=== PATIENT | male | born 1950 | race Caucasian/White ===

== ENCOUNTER 2021-07-16 11:52 | Emergency (ER) | payer BC ==
[~2021-07-16] VITALS: Ht 188 cm; Wt 95.9 kg
[2021-07-16] MEDS ORDERED: IV NORMAL SALINE 1,000ML 1,000 ML IV ONE (12:15)
--- NOTE | 2021-07-16 12:16 | PHYS DOC ---
Past History Past Surgical History: Other Additional Past Surgical Histo: vasectomy (INGA WOOD APRN) General Adult EDM: Chief Complaint: LACERATION/AVULSION HPI: HPI: Patient is a 71-year-old male who presents to the emergency department via EMS following a fall. Patient reports that he was sitting down when his perceptions knocked on his door and he stood up to answer the door and felt lightheaded and hot and passed out. Patient reports hitting the back of his head on his floor. He does have hematoma and abrasion to the back of his scalp. Patient states that he is currently "being worked up for liver problems" by his primary care provider. Patient is reporting left-sided paraspinal neck pain. He denies back pain, blood thinner use, nausea, vomiting, chest pain, shortness of breath. (INGA WOOD APRN) Review of Systems: Review of Systems: HENT: See HPI Respiratory: See HPI Cardiovascular: See HPI GI: See HPI Musculoskeletal: See HPI Integument: See HPI Neurologic: See HPI (INGA WOOD APRN) Current Medications: Current Meds: Current Medications Medications (Trade) Dose Ordered Sig/Ton Start Time Stop Time Status Last Admin Dose Admin Sodium Chloride 1,000 ml @ 1,000 mls/hr 1X ONCE 07/16/21 12:15 07/16/21 13:14 UNV (INGA WOOD APRN) Allergies: Allergies: Allergies Coded Allergies Type Severity Reaction Last Updated Verified No Known Drug Allergies 07/16/21 No (INGA WOOD APRN) Physical Exam: PE: Constitutional: Well developed, well nourished, no acute distress, non-toxic appearance. [] HENT: Normocephalic, no abernathy sign or raccoon sign, no palpable skull fracture, golf ball sized hematoma noted to the left posterior scalp, abrasion noted to this area,, bilateral external ears normal, oropharynx moist, no oral exudates, nose normal. [] Eyes: PERRL, 4 mm bilaterally, EOMI, conjunctiva normal, no discharge. [] Neck: Normal range of motion, no bony spinal tenderness, no step-offs or deformities, left-sided paraspinal cervical tenderness at the base of the skull with palpation, supple, no stridor. [] Cardiovascular:Heart rate r bradycardic rhythm, no murmur [] Lungs & Thorax: Bilateral breath sounds clear to auscultation [] Abdomen: Bowel sounds normal, soft, no tenderness, no masses, no pulsatile masses. [] Skin: Warm, dry, no erythema, no rash. [] Back: No spinal tenderness, no deformities, normal range of motion Extremities: No tenderness, no cyanosis, no clubbing, ROM intact, no edema. [] Neurologic: Alert and oriented X 3, normal motor function, normal sensory function, no focal deficits noted. [] Psychologic: Affect normal, judgement normal, mood normal. [] (INGA WOOD APRN) Current Patient Data: Labs: Laboratory Tests Test 07/16/21 12:11 White Blood Count 8.4 x10^3/uL Red Blood Count 4.89 x10^6/uL Hemoglobin 15.6 g/dL Hematocrit 46.2 % Mean Corpuscular Volume 95 fL Mean Corpuscular Hemoglobin 32 pg Mean Corpuscular Hemoglobin Concent 34 g/dL Red Cell Distribution Width 15.3 % Platelet Count 245 x10^3/uL Neutrophils (%) (Auto) 77 % Lymphocytes (%) (Auto) 8 % Monocytes (%) (Auto) 12 % Eosinophils (%) (Auto) 1 % Basophils (%) (Auto) 2 % Neutrophils # (Auto) 6.5 x10^3uL Lymphocytes # (Auto) 0.7 x10^3/uL Monocytes # (Auto) 1.0 x10^3/uL Eosinophils # (Auto) 0.1 x10^3/uL Basophils # (Auto) 0.2 x10^3/uL Sodium Level 131 mmol/L Potassium Level 4.7 mmol/L Chloride Level 95 mmol/L Carbon Dioxide Level 29 mmol/L Anion Gap 7 Blood Urea Nitrogen 33 mg/dL Creatinine 1.8 mg/dL Estimated GFR (Cockcroft-Gault) 37.6 BUN/Creatinine Ratio 18 Glucose Level 78 mg/dL Calcium Level 9.2 mg/dL Total Bilirubin 1.2 mg/dL Aspartate Amino Transf (AST/SGOT) 52 U/L Alanine Aminotransferase (ALT/SGPT) 44 U/L Alkaline Phosphatase 86 U/L Troponin I High Sensitivity 11 ng/L Total Protein 6.4 g/dL Albumin 3.2 g/dL Albumin/Globulin Ratio 1.0 Current Medications Medications (Trade) Dose Ordered Sig/Ton Route PRN Reason Start Time Stop Time Status Last Admin Dose Admin Sodium Chloride 1,000 ml @ 1,000 mls/hr 1X ONCE IV 07/16/21 12:15 07/16/21 13:14 07/16/21 12:22 Vital Signs: Vital Signs Date Time Temp Pulse Resp B/P (MAP) Pulse Ox O2 Delivery O2 Flow Rate FiO2 07/16/21 12:00 97.9 56 20 91/58 (69) 97 Room Air (INGA WOOD APRN) EKG: EKG: EKG performed by ER staff at 1206 shows sinus rhythm with a rate of 53, QTC is 451, no STEMI read by Dr. Walker at 1211 [] (INGA WOOD APRN) Radiology/Procedures: Radiology/Procedures: []PROCEDURE: PORTABLE CHEST 1V XR CHEST 1V History: Reason: sycnope / Spl. Instructions: / History: Comparison: None. Findings: No consolidation or pleural effusion. Normal heart size. No pneumothorax. Impression: 1. No acute cardiopulmonary process. Electronically signed by: Marcus Bello DO (07/16/2021 12:55 PM) [id number] DICTATED AND SIGNED BY: MARCUS BELLO DO DATE: 07/16/21 1254 CC: INGA WOOD APRN; NON,STAFF ~MTH0 0 PROCEDURE: CT HEAD AND CERVICAL SPINE WO CT scan of the head without contrast 07/16/2021 Clinical History: Head injury. Technique: Unenhanced, contiguous, 5 mm axial sections were obtained through the head. One or more of the following individualized dose reduction techniques were utilized for this study: 1. Automated exposure control. 2. Adjustment of the mA and/or kV according to patient size. 3. Use of iterative reconstruction technique. Findings: There is generalized parenchymal atrophy. Areas of decreased attenuation are seen within the periventricular and subcortical white matter of both cerebral hemispheres consistent with areas of small vessel ischemic disease. No acute parenchymal abnormality is seen. No extra-axial fluid collection is noted. No skull fracture is seen. Impression: No acute intracranial abnormality is seen. CT scan of the cervical spine without contrast 07/16/2021 Clinical history: Fall. Neck injury. Technique: Unenhanced, contiguous, 0.625 mm axial sections were obtained through the cervical spine. 2.5 mm reconstructed axial and 2 mm coronal and sagittal reconstructed images were obtained. One or more of the following individualized dose reduction techniques were utilized for this study: 1. Automated exposure control. 2. Adjustment of the mA and/or kV according to patient size. 3. Use of iterative reconstruction technique. Findings: Sagittal and coronal reconstructed images demonstrate straightening of the normal cervical lordosis. Degenerative changes consisting of varying degrees of disc space narrowing, vertebral endplate sclerosis and mild to moderate anterior vertebral body osteophyte formation are seen involving the mid and lower cervical disc spaces. No fracture or subluxation of the cervical vertebrae is seen. Degenerative changes are seen involving the uncovertebral and facet joints throughout the cervical disc spaces. Impression: No fracture or subluxation of the cervical vertebra is identified. Electronically signed by: Naeem Lawson MD (07/16/2021 12:56 PM) [id number] DICTATED AND SIGNED BY: NAEEM LAWSON MD DATE: 07/16/21 1250 CC: INGA WOOD APRN; NON,STAFF ~MTH0 0 (INGA WOOD APRN) Heart Score: C/O Chest Pain: No Risk Factors: Risk Factors: DM, Current or recent (<one month) smoker, HTN, HLP, family history of CAD, obesity. Risk Scores: Score 0 - 3: 2.5% MACE over next 6 weeks - Discharge Home Score 4 - 6: 20.3% MACE over next 6 weeks - Admit for Clinical Observation Score 7 - 10: 72.7% MACE over next 6 weeks - Early Invasive Strategies (INGA WOOD APRN) Course & Med Decision Making: Course & Med Decision Making Pertinent Labs and Imaging studies reviewed. (See chart for details) [] Patient presents to the emergency department for a syncopal episode and fall. Work-up in the emergency department consisted of blood work including troponin, urinalysis, EKG, chest x-ray. CT imaging of head and neck performed due to trauma.C-collar placed. Patient is likely experiencing orthostatic hypotension as he reports that he stood up felt dizzy and hot and passed out. Patient will be treated with IV fluids as he is mildly hypotensive. CBC unremarkable. Patient's sodium was 131 chloride was 95. BUN 33, creatinine 1.8. Patient reports that he has a history of elevated creatinine. Patient's troponin was 11. Chest x-ray showed no acute findings. Negative CT scan of head and neck. C-collar cleared. Patient's heart rate is bradycardic he states that he takes propanolol and has a history of bradycardia. Following treatment with IV fluids, patient's blood pressure has improved. Patient will be road tested to determine if he is able to ambulate without severe dizziness or syncope. Patient was noted to have a decrease in his blood pressure when he stood up but he did not have any syncope, dizziness, tachycardia, hypoxia. When he ambulated was with a steady gait. Blood pressure return to normal ranges when he sat down. Patient still has about 800 cc of his IV fluids left. He will receive the remainder of his IV fluids and he is advised to follow-up with his primary care provider. She continues to be asymptomatic. He denies any dizziness. I discussed with patient slowly changing positions, increasing fluids and following up with his doctor regarding medical management. He may need his blood pressure medication decreased. He reported that his is contacted his primary care provider and they have removed enalapril from his medication today. Patient is agreeable to discharge. I discussed with patient all findings and diagnostic testing as well as the need to follow-up with PCP for further evaluation and treatment or return to the ER if any new or worsening symptoms. Strict return precautions were also discussed at length. Patient voiced understanding and agreement with the plan. Patient is hemodynamically stable at the time of disposition. (INGA WOOD APRN) Dragon Disclaimer: Dragon Disclaimer: This electronic medical record was generated, in whole or in part, using a voice recognition dictation system. (INGA WOOD APRN) Laceration Repair Lac Repair Time: 1230 Confirmed: Patient, procedure, site, and site correct Consent: Patient has given verbal consent Laceration location: Left posterior scalp Shape: Puncture/wound Details: Clean with no foreign material Neurovascular, tendon exam: Intact Irrigation: Wound irrigated with sterile saline Skin closure: Staple Number of sutures:1 Post procedure exam: Circulation, motor, sensory exam intact, bleeding controlled. Complications: None Patient tolerated: Well Performed by: self Total time: 5 minutes (INGA WOOD APRN) Attending Co-Sign The patient was seen and interviewed as well as examined at the bedside. The chart was reviewed. The case was discussed. Agree with the plan of care. (WALKER,CONCEPCION DO) Departure Departure: Impression: Primary Impression: Syncope Qualified Codes: R55 - Syncope and collapse Disposition: HOME / SELF CARE / HOMELESS Condition: GOOD Referrals: PCPDAMON (PCP) Patient Instructions: Syncope Additional Instructions: You were seen in the emergency department today for a syncopal episode. As we discussed, you had mild elevation in your creatinine which you need to follow-up with your primary care provider regarding. As we discussed, I suspect that you are experiencing orthostatic hypotension. Make sure at home you are slowly changing positions so that your blood pressure does not drop too quickly. Please increase your fluid intake. You stated that your primary care provider has adjusted your hypertension medications. Apply ice to your scalp to help with swelling and pain. Please keep your laceration clean and dry. You can wash it with mild soap and warm water. Please do not scrub your head too vigorously as do not want to disrupt this staple in place. Monitor for any signs of infection at your wound site which would include redness, warmth, swelling or drainage. You will need to have your staple removed in 7 to 10 days. You can follow-up with your primary care provider to have the staple removed or return to the emergency department. Please contact your primary care provider to follow-up regarding your ER visit tomorrow. Return to the emergency department if you develop dizziness, syncope, chest pain, shortness of breath, high fevers refractory to treatment, signs of skin infection as stated above, intractable nausea or vomiting, confusion, poor coordination, speech changes, inability to walk, vision changes. INGA WOOD APRN Jul 16, 2021 12:16 CONCEPCION WALKER DO Jul 18, 2021 09:09
[2021-07-16 12:28] LABS: BASO # 0.2 x10^3/uL (0.0-0.2); BASO % 2 % (0-3); EOS # 0.1 x10^3/uL (0.0-0.7); EOS % 1 % (0-3); HEMATOCRIT 46.2 % (39.0-53.0); HEMOGLOBIN 15.6 g/dL (13.0-17.5); LYMPH # 0.7 x10^3/uL (1.0-4.8); LYMPH % 8 % (24-48); MEAN CORPUSCULAR HEMOGLOBIN 32 pg (25-35); MEAN CORPUSCULAR HGB CONC 34 g/dL (31-37); MEAN CORPUSCULAR VOLUME 95 fL (79-100); MONO % 12 % (0-9); NEUT # 6.5 x10^3uL (1.8-7.7); NEUT % 77 % (31-73); PLATELET COUNT 245 x10^3/uL (140-400); RED BLOOD COUNT 4.89 x10^6/uL (4.30-5.70); RED CELL DISTRIBUTION WIDTH 15.3 % (11.5-14.5); WHITE BLOOD COUNT 8.4 x10^3/uL (4.0-11.0)
[2021-07-16 12:38] LABS: CALCIUM 9.2 mg/dL (8.5-10.1); CREATININE 1.8 mg/dL (0.7-1.3); GFR 37.6; POTASSIUM 4.7 mmol/L (3.5-5.1)
[2021-07-16 12:44] LABS: ALBUMIN 3.2 g/dL (3.4-5.0); TOTAL BILIRUBIN 1.2 mg/dL (0.2-1.0); TOTAL PROTEIN 6.4 g/dL (6.4-8.2)
--- NOTE | 2021-07-16 12:57 | RAD ---
XR CHEST 1V History: Reason: sycnope / Spl. Instructions: / History: Comparison: None. Findings: No consolidation or pleural effusion. Normal heart size. No pneumothorax. Impression: 1. No acute cardiopulmonary process. Electronically signed by: Marcus Bello DO (07/16/2021 12:55 PM) [id number]
--- NOTE | 2021-07-16 12:59 | RAD ---
CT scan of the head without contrast 07/16/2021 Clinical History: Head injury. Technique: Unenhanced, contiguous, 5 mm axial sections were obtained through the head. One or more of the following individualized dose reduction techniques were utilized for this study: 1. Automated exposure control. 2. Adjustment of the mA and/or kV according to patient size. 3. Use of iterative reconstruction technique. Findings: There is generalized parenchymal atrophy. Areas of decreased attenuation are seen within t he periventricular and subcortical white matter of both cerebral hemispheres consistent with areas of small vessel ischemic disease. No acute parenchymal abnormality is seen. No extra-axial fluid collec tion is noted. No skull fracture is seen. Impression: No acute intracranial abnormality is seen. CT scan of the cervical spine without contrast 07/16/2021 Clinical history: Fall. Neck injury. Technique: Unenhanced, contiguous, 0.625 mm axial sections were obtained through the cervical spine. 2.5 mm reconstructed axial and 2 mm coronal and sagittal reconstructed images were obtained. One or more of the following individualized dose reduction techniques were utilized for this study: 1. Automated exposure control. 2. Adjustment of the mA and/or kV according to patient size. 3. Use of iterative reconstruction technique. Findings: Sagittal and coronal reconstructed images demonstrate straightening of the normal cervical lordosis. Degenerative changes consisting of varying degrees of disc space narrowing, vertebral endpl ate sclerosis and mild to moderate anterior vertebral body osteophyte formation are seen involving th e mid and lower cervical disc spaces. No fracture or subluxation of the cervical vertebrae is seen. Degenerative changes are seen involving the uncovertebral and facet joints throughout the cervical disc spaces. Impression: No fracture or subluxation of the cervical vertebra is identified. Electronically signed by: Naeem Lawson MD (07/16/2021 12:56 PM) [id number]
[2021-07-16 13:30] VITALS: BP 119/66
--- NOTE | 2021-07-16 23:09 | EKG ---
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
== END 2021-07-16 14:03 | disposition home or self-care (01) ==
LOC: ER 11:52
DX: S01.01XA Laceration without foreign body of scalp, initial encounter (principal); R55 Syncope and collapse; M54.2 Cervicalgia; W18.39XA Other fall on same level, initial encounter; Y93.89 Activity, other specified; Y92.89 Other specified places as the place of occurrence of the external cause; Y99.8 Other external cause status
CPT/HCPCS: 12001; 36415; 70450; 71045; 72125; 80053; 84484; 85025; 93005; 96360; 96361; 99285; J7030